=== PATIENT | male | born 1990 | race Two or more races ===

== ENCOUNTER 2025-05-25 09:39 | Emergency (ER) | payer SELFPAY ==
[2025-05-25 09:46] VITALS: BP 139/97; PULSE 65; TEMP 37; O2SAT 95; BMI 29.8
--- NOTE | 2025-05-25 10:01 | XR_ITS ---
The [address] [address] Patient Name: SAMY COLLINS MRN: [id number] date: 1990 Sex: M Assigned Patient Location: ER Current Patient Location: ER Accession/Order Number: [id number] Exam Date: 05/25/2025 10:40 Report Date: 05/25/2025 10:57 At the request of: SABIHA BAKER DO Procedure: XR finger RT min 2V XR finger RT min 2V 05/25/2025 10:46 AM SIGNS AND SYMPTOMS: Pain in right second digit with laceration PROTOCOL: Frontal, lateral, and oblique radiographs of the right second digit COMPARISON: None FINDINGS: There is no acute displaced fracture. No evidence of dislocation. There is soft tissue swelling along the distal aspect of the second digit with subcutaneous emphysema adjacent to the distal phalanx consistent with history of laceration. XR/XR finger RT min 2V IMPRESSION: No fracture. There is soft tissue swelling along the distal aspect of the second digit with subcutaneous emphysema adjacent to the distal phalanx consistent with history of laceration. Impression dictated by: Santy Aguilera M.D. 05/25/2025 10:57 AM Dictation Location: [place] [address] Electronically authenticated by: [id number] Y Date: 05/25/2025 10:57
[2025-05-25] MEDS: LIDOCAINE HCL 1% PF 20 MG/2 ML VIAL 1 ML INJ (11:25)
[2025-05-25] MEDS: LIDOCAINE HCL 2% PF 40 MG/2 ML VIAL INJ (11:25)
[2025-05-25] MEDS: BACITRACIN 0.9 GM PACKET 1 PACKET TOPICAL (11:29)
[2025-05-25] MEDS: DIPHTH,PERTUSS(ACELL),TET VAC 0.5 ML SYRINGE IM (11:30)
--- NOTE | 2025-05-25 15:16 | ED.GENADUL1 ---
HPI HPI - General Adult General Chief complaint: Extremity Injury, Upper Stated complaint: UPPER EXTREMITY INJURY Time Seen by Provider: 05/25/25 10:01 Source: patient Mode of arrival: walk-in Limitations: language barrier History of Present Illness HPI narrative: Patient is a 34-year-old male presenting to the emergency department for concerns of a right finger injury. Patient states he dropped a tire on his right finger while working on his car. This occurred just prior to arrival. He denies any other injuries. He denies numbness/tingling in the finger. He is unsure of his last tetanus shot. Related Data Allergies Allergy/AdvReac Type Severity Reaction Status Date / Time No Known Drug Allergies Allergy Verified 05/25/25 09:46 Review of Systems ROS Status of ROS 10 or more systems reviewed and unremarkable except as noted in history and below PFSH PFSH Social History Little interest or pleasure in doing things: not at all Feeling down, depressed, or hopeless: not at all Exam Narrative Exam Narrative: CONSTITUTIONAL: Well-appearing, answering questions and following commands appropriately SKIN: Was warm and dry. EYES: Sclerae white. EARS, NOSE, THROAT: Moist oral mucosa. RESPIRATORY: Clear to auscultation bilaterally, no wheezes, crackles, or stridor, no use of accessory muscles CARDIOVASCULAR: Normal rate and regular rhythm. 2+ radial pulse on the right. Cap refill less than 3 seconds in the right index finger. GASTROINTESTINAL: Abdomen is nondistended. MUSCULOSKELETAL: There is an approximately 2-1/2 cm long laceration on the palmar aspect of the right index finger from the fingertip to the just above the PIP joint. There is mild, nonpulsatile bleeding. No obvious foreign bodies. There is good range of motion at the MCP, PIP, and DIP joints. NEUROLOGIC: Patient is awake and alert. Good strength and sensation to light touch to the right index finger. Constitutional Vital Signs, click to edit/add: Last Vital Signs Temp 98.6 F 05/25/25 09:46 Pulse 65 05/25/25 09:46 Resp 18 05/25/25 09:46 BP 139/97 H 05/25/25 09:46 Pulse Ox 95 05/25/25 09:46 O2 Del Method Room Air 05/25/25 09:46 Course Vital Signs Vital signs: Vital Signs Temperature 98.6 F 05/25/25 09:46 Pulse Rate 65 05/25/25 09:46 Respiratory Rate 18 05/25/25 09:46 Blood Pressure 139/97 H 05/25/25 09:46 Pulse Oximetry 95 05/25/25 09:46 Oxygen Delivery Method Room Air 05/25/25 09:46 Temperature 98.6 F 05/25/25 09:46 Pulse Rate 65 05/25/25 09:46 Respiratory Rate 18 05/25/25 09:46 Blood Pressure 139/97 H 05/25/25 09:46 Pulse Oximetry 95 05/25/25 09:46 Oxygen Delivery Method Room Air 05/25/25 09:46 Medical Decision Making MDM Narrative Medical decision making narrative: Patient is a healthy 34-year-old male presenting to the emergency department with right index finger injury after dropping a tire on the digit. Vital signs are within normal limits. He is afebrile and hemodynamically stable. Differential diagnosis includes finger fracture, finger laceration, bony contusions. Low concern for ligamentous or neurovascular injury given that he has good strength/sensation/perfusion and full range of motion throughout all the joints of the finger. X-rays were obtained to further investigate. His Tdap shot was updated. X-rays independent reviewed/interpreted by myself and confirmed by radiology demonstrated no acute osseous abnormalities. At this time, the finger was irrigated and closed by primary intention with 4-0 Ethilon sutures x 7 (see procedure note for full dictation). Patient is stable for discharge. He is instructed follow-up with his PCP in 5 to 7 days for wound check and suture removal. Patient was given bacitracin and instructed to clean the wound with soap and water, keep the wound clean. Return precautions were given including any new or concerning symptoms, such as evidence of infection such as redness, swelling, or fevers. Patient understands and agrees to the plan. FINAL IMPRESSION: Acute right index finger laceration DISPOSITION: Discharged home CONDITION: Good Imaging Data finger xray: Attestation: I personally reviewed and interpreted this imaging study as follows: Radiologist's impression: ITS Impressions Finger X-Ray 05/25/25 10:01 IMPRESSION: No fracture. There is soft tissue swelling along the distal aspect of the second digit with subcutaneous emphysema adjacent to the distal phalanx consistent with history of laceration. Impression dictated by: Santy Aguilera M.D. 05/25/2025 10:57 AM Dictation Location: [place] [address] Electronically authenticated by: [id number] Y Date: 05/25/2025 10:57 Discharge Plan Discharge Chief Complaint: Extremity Injury, Upper Clinical Impression: Finger laceration Qualifiers: Encounter type: initial encounter Finger: index finger Damage to nail status: without damage Foreign body presence: without foreign body Laterality: right Qualified Code(s): S61.210A - Laceration without foreign body of right index finger without damage to nail, initial encounter Patient Disposition: Home, Self-Care Time of Disposition Decision: 11:18 Condition: Good Mode of Transportation: Private Vehicle Print Language: Scottish Instructions: Finger Laceration (ED) Referrals: Physician,Non-Staff, MD [Primary Care Provider] - 1 week Discharge Date/Time: 05/25/25 11:45 Procedures ED Laceration Laceration Right index finger laceration: Site: hand Side (if applicable): right Size (cm): 2.5 Description: irregular Depth: simple, single layer Anesthetic used: lidocaine 1% Anesthesia technique: local infiltration and nerve block (digital block) Amount (ml): 5 Pre-repair: irrigated extensively Skin layer closed with: other (nylon) Size (cm): 4-0 Number of sutures: 7 Technique: simple, interrupted
== END 2025-05-25 11:45 | disposition home or self-care (01) ==
PROVIDERS: Emergency Provider Student in an Organized Health Care Education/Training Program
DX: S61.210A Laceration without foreign body of right index finger without damage to nail, initial encounter (principal); X58.XXXA Exposure to other specified factors, initial encounter; Z23 Encounter for immunization
CPT/HCPCS: 12001; 73140; 90471; 99284